=== PATIENT | female | born 1950 | race Hispanic/Latino ===

== ENCOUNTER 2017-02-09 09:43 | Outpatient (CLI) | payer MEDICARE ==
--- NOTE | 2017-02-10 11:36 | Mammography Report ---
BILATERAL DIGITAL AUGMENTED SCREENING MAMMOGRAM with CAD: 02/09/17 09:43:00 CLINICAL: Routine screening. COMPARISON:None FINDINGS: Screening views with and without implant displacement demonstrate fatty breasts. No mass, architectural distortion or suspicious calcifications. Intact subpectoral implants. IMPRESSION: No mammographic evidence of malignancy. BI-RADS CATEGORY: 2 -- Benign RECOMMENDATION: Routine mammographic screening in one year. ACR BI-RADS MAMMOGRAPHIC CODES: 0 = Needs additional imaging evaluation; 1 = Negative; 2 = Benign; 3 = Probably benign; 4 = Suspicious; 5 = Malignant; 6 = Known biopsy-proven malignancy COMMENT: 1. Dense breast tissue, i.e., adenosis, fibrocystic changes, etc., may obscure an underlying neoplasm. 2. Approximately 10% of cancers are not detected with mammography. 3. A negative mammography report should not delay biopsy if a clinically suspicious mass is present. COMMENT: Patient follow-up letters are generated via our [employer] application.
== END 2017-02-09 09:44 | disposition home or self-care (01) ==
LOC: SPVWC 09:43
PROVIDERS: ATTEND Obstetrics & Gynecology Gynecology
DX: Z12.31 Encounter for screening mammogram for malignant neoplasm of breast (principal); Z98.82 Breast implant status
CPT/HCPCS: 77067; G0202

== ENCOUNTER 2018-02-16 09:41 | Outpatient (CLI) | payer MEDICARE ==
--- NOTE | 2018-02-16 13:26 | Mammography Report ---
BILATERAL DIGITAL AUGMENTED SCREENING MAMMOGRAM with CAD: 02/16/18 09:41:00 CLINICAL: Routine screening. COMPARISON:02/09/17 FINDINGS: Screening views with and without implant displacement demonstrate mostly fatty breasts. No mass, architectural distortion or suspicious calcifications. Intact subpectoral implants. IMPRESSION: No mammographic evidence of malignancy. BI-RADS CATEGORY: 2 -- Benign RECOMMENDATION: Routine mammographic screening in one year. ACR BI-RADS MAMMOGRAPHIC CODES: 0 = Needs additional imaging evaluation; 1 = Negative; 2 = Benign; 3 = Probably benign; 4 = Suspicious; 5 = Malignant; 6 = Known biopsy-proven malignancy COMMENT: 1. Dense breast tissue, i.e., adenosis, fibrocystic changes, etc., may obscure an underlying neoplasm. 2. Approximately 10% of cancers are not detected with mammography. 3. A negative mammography report should not delay biopsy if a clinically suspicious mass is present. COMMENT: Patient follow-up letters are generated via our [employer] application.
== END 2018-02-16 09:42 | disposition home or self-care (01) ==
LOC: SPVWC 09:41
PROVIDERS: ATTEND Obstetrics & Gynecology
DX: Z12.31 Encounter for screening mammogram for malignant neoplasm of breast (principal)
CPT/HCPCS: 77067

== ENCOUNTER 2019-02-19 08:36 | Outpatient (CLI) | payer MEDICARE ==
--- NOTE | 2019-02-19 10:47 | Mammography Report ---
DIGITAL SCREENING MAMMOGRAM WITH TOMOSYNTHESIS , 02/19/2019 INDICATION: Routine Screening Mammography. SCREENING MAMMOGRAM TECHNIQUE: Digital bilateral 2D and 3D mammography with tomosynthesis was obtained in the craniocau ban and mediolateral oblique projections. COMPARISON: 02/16/2018 and 02/09/2017 FINDINGS: Breast Density: The breasts are almost entirely fatty. A 4 mm circumscribed density in the central left breast approximately 6 cm from the nipple (image 35 on the MLO danial series and image 26 on the CC danial series) is new compared to previous exams and requ ires additional imaging. No architectural distortion or suspicious calcifications of the left breast. There is no evidence of dominant mass, suspicious calcifications or architectural distortion in the right breast. IMPRESSION: A left focal asymmetry requiring additional imaging. Recommend targeted left breast ultra sound for further evaluation. Follow up recommendation: Ultrasound Category 0: Incomplete. Needs additional imaging evaluation and/or prior mammograms for comparison. A "normal" or negative report should not discourage follow up or biopsy of a clinically significant f inding. A written summary of these findings will be mailed to the patient. The patient will be entered into a mammography reporting system which will generate a reminder letter for the patient's next appointmen t at the appropriate interval. The [employer] recommends yearly mammograms starting at age 40 and continuing as l ming as a woman is in good health. Breast MRI is recommended for women with an approximate 20-25% or greater lifetime risk of breast cancer, including women with a strong family history of breast or ova martín cancer or who have been treated for Hodgkin's disease. Signer Name: Collin Kamara MD Signed: 02/19/2019 10:43 AM Workstation Name: [id number]
== END 2019-02-19 08:37 | disposition home or self-care (01) ==
LOC: SPVWC 08:36
PROVIDERS: ATTEND Obstetrics & Gynecology
DX: Z12.31 Encounter for screening mammogram for malignant neoplasm of breast (principal); N64.89 Other specified disorders of breast
CPT/HCPCS: 77063; 77067

== ENCOUNTER 2019-02-28 08:46 | Outpatient (CLI) | payer MEDICARE ==
--- NOTE | 2019-02-28 10:07 | Ultrasound Report ---
LIMITED LEFT BREAST ULTRASOUND HISTORY: A tiny focal asymmetry on recent screening mammogram with tomosynthesis. COMPARISON: 02/19/2018 screening mammogram with tomosynthesis. FINDINGS: Focused sonographic evaluation upon the central posterior location of the left breast demon strates no distinct abnormality. IMPRESSION: Negative targeted left breast ultrasound. Recommend 6 month follow-up left diagnostic mammogram with tomosynthesis to reevaluate the focal asymmetry. BIRADS 3: Probably benign. Signer Name: Collin Kamara MD Signed: 02/28/2019 10:02 AM Workstation Name: [id number]
== END 2019-02-28 08:47 | disposition home or self-care (01) ==
LOC: SPVWC 08:46
PROVIDERS: ATTEND Obstetrics & Gynecology
DX: R92.8 Other abnormal and inconclusive findings on diagnostic imaging of breast (principal)

== ENCOUNTER 2019-09-03 09:10 | Outpatient (CLI) | payer MEDICARE ==
--- NOTE | 2019-09-03 11:13 | Mammography Report ---
DIGITAL DIAGNOSTIC MAMMOGRAM WITH CAD, 09/03/2019 INDICATION: Six-month follow-up of the left breast. Based on previous reports, there was a 4 mm dens ity within the central aspect of the left breast for which follow-up is recommended. TECHNIQUE: Digital left mammographic imaging was performed. This examination was interpreted with the benefit of Computer-aided Detection analysis. COMPARISON: Screening mammogram, 02/19/2019, 02/16/2018 and 02/09/2017 FINDINGS: Breast Density: There are scattered areas of fibroglandular density. The 4 mm nodular density within the central aspect of the left breast is not clearly reproduced on to day's study. No suspicious mass, architectural distortion or microcalcifications identified. Please note that the previously described density was seen on tomosynthesis series rather than on 2-D mammography. IMPRESSION: Follow up recommendation: Short term follow up in 6 months. BI-RADS Category 3: Probably Benign. Followup in 6 months. The 4 mm nodular density described on the previous study is not reproduced on today's mammogram. Please note that tomosynthesis would be the b shante way to follow up this finding, given that the original finding was seen on tomosynthesis only. If the patient has not able to have a mammogram with tomosynthesis, then a an additional 6 month foll ow-up mammogram is recommended to confirm continued stability. The patient will be due for a bilatera l mammogram at the time of her return visit. A "normal" or negative report should not discourage follow up or biopsy of a clinically significant f inding. A written summary of these findings will be mailed to the patient. The patient will be entered into a mammography reporting system which will generate a reminder letter for the patient's next appointmen t at the appropriate interval. According to the [employer], yearly mammograms are recommended starting at age 40 and continuing as long as a woman is in good health. Breast MRI is recommended for women with an jayro roximately 20-25% or greater lifetime risk of breast cancer, including women with a strong family his tory of breast or ovarian cancer and women who have been treated for Hodgkin's disease. Signer Name: Ophelia Alcaraz MD Signed: 09/03/2019 11:08 AM Workstation Name: [id number]
== END 2019-09-03 09:11 | disposition home or self-care (01) ==
LOC: SPVWC 09:10
PROVIDERS: ATTEND Obstetrics & Gynecology
DX: R92.8 Other abnormal and inconclusive findings on diagnostic imaging of breast (principal)

== ENCOUNTER 2020-03-04 08:02 | Outpatient (CLI) | payer MEDICARE, BC ==
--- NOTE | 2020-03-04 09:07 | Mammography Report ---
DIGITAL SCREENING MAMMOGRAM WITH CAD, 03/04/2020 CLINICAL INFORMATION / INDICATION: Routine screening mammography. TECHNIQUE: Digital bilateral 2D mammography was obtained in the craniocaudal and mediolateral obliqu e projections. This examination was interpreted with the benefit of Computer-Aided Detection analysis . COMPARISON: 03/05/2019, 02/19/2019, 02/16/2018 FINDINGS: Breast Density: There are scattered areas of fibroglandular density. No dominant mass, suspicious calcifications, or architectural distortion in either breast. The previo usly described left breast nodular density is not identified. Retropectoral silicone implants are intact. IMPRESSION: No mammographic evidence of malignancy. Follow up recommendation: Routine yearly BI-RADS Category 2: Benign. A "normal" or negative report should not discourage follow up or biopsy of a clinically significant f inding. A written summary of these findings will be mailed to the patient. The patient will be entered into a mammography reporting system which will generate a reminder letter for the patient's next appointmen t at the appropriate interval. The [employer] recommends yearly mammograms starting at age 40 and continuing as l ming as a woman is in good health. Breast MRI is recommended for women with an approximate 20-25% or greater lifetime risk of breast cancer, including women with a strong family history of breast or ova martín cancer or who have been treated for Hodgkin's disease. Signer Name: Benji Weiss MD Signed: 03/04/2020 9:02 AM Workstation Name: [id number]
== END 2020-03-04 08:03 | disposition home or self-care (01) ==
LOC: SPVWC 08:02
PROVIDERS: ATTEND Obstetrics & Gynecology
DX: Z12.31 Encounter for screening mammogram for malignant neoplasm of breast (principal)
CPT/HCPCS: 77067

== ENCOUNTER 2021-03-10 14:43 | Outpatient (CLI) | payer MEDICARE, BC ==
--- NOTE | 2021-03-11 15:06 | Mammography Report ---
DIGITAL SCREENING MAMMOGRAM WITH TOMOSYNTHESIS WITH CAD, 03/10/2021 CLINICAL INFORMATION / INDICATION: Routine Screening Mammography. TECHNIQUE: Digital bilateral 2D and 3D mammography with tomosynthesis was obtained in the craniocaud al and mediolateral oblique projections. Computer-Aided Detection (CAD) analysis was used for interp retation of this study. COMPARISON: 02/09/2017 through 03/04/2020. FINDINGS: Breast Density: There are scattered areas of fibroglandular density. No dominant mass, suspicious calcifications, or architectural distortion in either breast. There are bilateral subpectoral silicone implants. IMPRESSION: No mammographic evidence of malignancy. Follow up recommendation: Routine yearly BI-RADS Category 2: BENIGN. A "normal" or negative report should not discourage follow up or biopsy of a clinically significant f inding. A written summary of these findings will be mailed to the patient. The patient will be entered into a mammography reporting system which will generate a reminder letter for the patient's next appointmen t at the appropriate interval. The [employer] recommends yearly mammograms starting at age 40 and continuing as l ming as a woman is in good health. Breast MRI is recommended for women with an approximate 20-25% or greater lifetime risk of breast cancer, including women with a strong family history of breast or ova martín cancer or who have been treated for Hodgkin's disease. Signer Name: Antonio Page MD Signed: 03/11/2021 3:01 PM Workstation Name: [id number]
== END 2021-03-10 14:44 | disposition home or self-care (01) ==
LOC: SPVWC 14:43
PROVIDERS: ATTEND Obstetrics & Gynecology
DX: Z12.31 Encounter for screening mammogram for malignant neoplasm of breast (principal)
CPT/HCPCS: 77063; 77067